=== PATIENT | female | born 1945 ===

== ENCOUNTER 2025-03-16 14:11 | Outpatient (AMB) | payer MEDICARE, OTHER, SELFPAY ==
--- NOTE | 2025-03-16 14:13 | A.OFFVIS_ITS ---
Intake Visit Reasons: tremor Allergies Sulfa (Sulfonamide Antibiotics) Allergy (Unknown, Verified 12/24/24 11:58) Unknown HPI Comments Details: The patient is a 79 year old female presenting with tremor and loss of balance. She reports issues with balance, which is her primary concern due to having bad bones and a fear of falling. She denies having any falls but states she furniture walks at home to maintain stability. The patient also reports a tremor, which she has been told is an old lady tremor. She also notes having poor memory. She reports intermittent urinary incontinence, describing it as leaking that can be absent for months at a time without a clear trigger. Past medical history is significant for atrial flutter, for which she takes Eliquis. She has a history of anxiety and depression. She denies a history of high blood pressure but notes a single elevated reading that resolved spontaneously 2-3 months ago. She has hearing impairment and typically uses hearing aids. The patient denies use of alcohol, tobacco, or illicit drugs. Her primary care physician has not performed any scans for her current symptoms. [facility] Medical History (Updated 03/16/25 @ 14:38 by Temi Mendez MD) Osteoporosis Mixed hyperlipidemia Depression Palpitation Atrial flutter Dizziness ZAKI (obstructive sleep apnea) Review of Systems Narrative Constitutional:?No fever, chills, fatigue, weight loss, or night sweats. HEENT:? Hearing loss.. Cardiovascular:?No chest pain, palpitations, orthopnea, PND, or leg swelling. Respiratory:?No cough, shortness of breath, wheezing, or hemoptysis. Gastrointestinal:?No nausea, vomiting, abdominal pain, diarrhea, or constipation. Genitourinary:? Reports intermittent urinary urgency.. Musculoskeletal:?No joint pain, stiffness, weakness, or muscle aches. Neurological:? Difficulty walking and tremor.. Psychiatric:? Anxiety and depression.. Endocrine:?No heat/cold intolerance, polydipsia, polyuria, or hair/skin changes. Hematologic/Lymphatic:?No easy bruising, bleeding, or lymphadenopathy. Integumentary (Skin):?No rash, lesions, itching, or color changes. Allergic/Immunologic:?No seasonal allergies, hives, or recurrent infections. Physical Exam Neuro Other: Mental Status: Alert and oriented to person, place, and time. Normal attention. Normal spontaneous speech, fluency, and comprehension. Cranial Nerves: CN II: Visual kaur full to confrontation, visual acuity intact. CN III, IV, : Pupils equal, round, reactive to light and accommodation. Extraocular movements are normal. CN V: Facial sensation is normal. CN VII: Facial movements symmetrical. CN VIII: Hearing intact to bedside conversation is diminished CN IX, X: Palate elevates symmetrically. CN XI: Shoulder shrug and head turn symmetrical. CN XII: Tongue midline without atrophy or fasciculations. Motor: No obvious focal arm or leg weakness. Deep tendon reflexes are 3+ with flexor plantars. Coordination: Yesrex-mn-ecga is okay. Gait and Station: Slow and cautious. Extrapyramidal: Full facial expressions and blinking. No rigidity. Movements are appropriate with no tremor or abnormality. Speech: Normal; no dysarthria or tremor. Assessment & Plan Assessment & Plan (1) Gait disorder: Code(s): R26.9 - Unspecified abnormalities of gait and mobility Category: Medical (2) Tremor: Code(s): R25.1 - Tremor, unspecified Category: Medical (3) Dementia: Code(s): F03.90 - Unspecified dementia, unspecified severity, without behavioral disturbance, psychotic disturbance, mood disturbance, and anxiety Category: Medical Qualifiers: Dementia type: unspecified type Dementia severity: mild Dementia behavioral or psychological symptom: with mood disturbance Qualified Code(s): F03.A3 - Unspecified dementia, mild, with mood disturbance Plan Impression: a: Gait disorder, 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 I explained that given her history of atrial flutter, there is a possibility of small strokes contributing to her symptoms. I have ordered a brain MRI to investigate this possibility. I instructed her to continue taking her Eliquis blood thinner. We will review the results of the MRI once it is completed. Orders: Orders MR head/brain wo con Today F03.90 - Unspecified dementia, unspecified severity, without behavioral disturbance, psychotic disturbance, mood disturbance, and anxiety, R25.1 - Tremor, unspecified, R26.9 - Unspecified abnormalities of gait and mobility Coding Level of Care Code New Pt Level 4 (10906) Diagnoses Gait disorder R26.9 Tremor R25.1 Mild dementia with mood disturbance, unspecified dementia type F03.A3 Dementia type: unspecified type Dementia severity: mild Dementia behavioral or psychological symptom: with mood disturbance
--- OUTSIDE RECORDS SUMMARY | 2025-03-16 17:40 | XMS_ITS ---
Author Name [facility] Organization Unknown Care Team Organization Name Specialty Phone Email Start Date End Da te [facility] 11/12/2024 [facility] 03/07/2023 11/12/19 24
--- OUTSIDE RECORDS SUMMARY | 2025-03-16 17:40 | XMS_ITS | Clinical Summary ---
Author Organization [address] [place] [address] Address [address] [place] [address] Phone Care Team Providers Care Doorkeeper Name Role Phone Estrella Addison MD Primary Care Provider [phone] Allergies Active Allergy Reactions Criticality Noted Date Comments Sulfa (Sulfonamide Antibiotics) 07/2022 Medications denosumab (Prolia) 60 mg/mL syringe syringe Inject into the skin. 08/29/19 23 Active escitalopram (LEXAPRO) 20 mg tablet Take 1 Tablet by mouth daily. Active calcium carbonate (CALCIUM 600 ORAL) Take by mouth. Active UNABLE TO FIND Inhale by mouth. CPAP HISTORICAL (HISTORICAL CPAP). Inhale by mouth. Active atorvastatin (LIPITOR) 40 mg tablet Take 1 tablet (40 mg total) by mouth 1 (one) time each day. 90 each 2 07/01/19 25 Active sertraline (ZOLOFT) 50 mg tablet Take 1.5 tablets (75 mg total) by mouth 1 (one) time each day. 06/20/19 25 Active albuterol HFA (PROAIR HFA ; PROVENTIL HFA ; VENTOLIN HFA) 90 mcg/actuation inhaler Inhale 2 puffs by mouth every 6 (six) hours if needed. 01/23/20 24 Active metoprolol tartrate (LOPRESSOR) 25 mg tablet Take 0.5 tablets (12.5 mg total) by mouth 2 (two) times a day. Active Eliquis 5 mg tablet TAKE 1 TABLET BY MOUTH TWICE A DAY 180 tablet 1 02/26/20 25 Active Eliquis 5 mg tablet TAKE 1 TABLET BY MOUTH TWICE A DAY 180 tablet 1 09/03/19 25 025 Discontinued Active Problems Problem Noted Date Diagnosed Date Dizziness 11/02/2023 Assessment & Plan (01/15/2025 12:03 PM EDT): See atrial flutter plan. Assessment & Plan (10/03/2024 12:53 PM EDT): Orders: Tilt table; Future ZAKI (obstructive sleep apnea) 12/29/2022 Overview (04/07/2024): Last Assessment & Plan: Patient underwent a sleep study that showed mild sleep apnea. As per the report from the [facility] sleep medicine service, she will benefit from sleep medicine consultation in the sleep medicine center. I have placed a referral. Atrial flutter 12/21/2022 Assessment & Plan (01/15/2025 12:03 PM EDT): Patient has had history of paroxysmal atrial fibrillation/flutter. She has a [id number] score of 3. She continues on Eliquis 5 mg twice daily. She denies abnormal bleeding. She is at an elevated fall risk with her ongoing dizziness. I checked orthostatic blood pressures today and there was a slight drop in her blood pressure upon standing. She is currently on metoprolol tartrate 12.5 mg twice daily our plan is to trial her off of the metoprolol to see if it helps alleviate or improve her dizziness symptoms. She was advised to utilize the metoprolol as needed if she were to experience palpitations. She was advised to ensure good hydration. If coming off of metoprolol makes no difference in her symptoms, then could consider continuing on metoprolol to tartrate 12.5 mg twice daily. Orders: ECG 12 lead Assessment & Plan (10/03/2024 12:53 PM EDT): Shortness of breath on exertion 12/21/2022 Palpitation 12/19/2022 Dyspnea on exertion 09/28/2022 Overview (04/07/2024): Last Assessment & Plan: Given the normal pulmonary work-up from the pulmonary standpoint of view, I explained Mrs. Owusu that her dyspnea is unlikely to be pulmonary cause. She does not have COPD or symptoms of asthma. Her pulmonary function test is completely normal. I will complete her work-up with a chest x-ray. She should continue with cardiology and primary care to determine if her dyspnea is cardiac in origin. Otherwise I will see her back in 6 months. Depression 08/28/2022 Closed nondisplaced fracture of third cervical v ertebra 08/28/2022 Closed nondisplaced fracture of second cervical vertebra 08/28/2022 Mixed hyperlipidemia 08/28/2022 Assessment & Plan (01/15/2025 12:03 PM EDT): Continue on statin. I have reviewed with the patient the importance of a heart healthy lifestyle which includes eating a low-fat low-salt diet, getting regular exercise, maintaining a healthy weight, not smoking, and following up with routine medical care. Assessment & Plan (10/03/2024 12:53 PM EDT): Osteoporosis 08/28/2022 Encounters Date Type Department Care Team Description 01/15/2025 10:40 AM EDT Office Visit [facility] Cardiology [phone] Gisela Gunn NP Atrial flutter, unspecified type (CMS/HCC V24, CMS/HCC V28) (Primary Dx); Dizziness; Mixed hyperlipidemia 01/15/2025 Telephone [facility] Cardiology [facility] [phone] Gisela Gunn NP from Last 3 Months Medical History Medical History Date Comments Hx of tonsillectomy DX:Hx of ton sillectomy Family History Medical History Relation Name Comments Breast cancer Brother Other cancer Brother Alcohol/Drug Father Diabetes Father Heart attack Father Heart attack Mother Relation Name Status Comments Brother Father Mother Social History Tobacco Use Types Packs/Day Years Used Date Smoking Tobacco: Never Smokeless Tobacco: Never Alcohol Use Standard Drinks/Week Comments Never 0 (1 standard drink = 0.6 oz pur e alcohol) Comments Unknown Sex and Gender Information Value Date Recorded Sex Assigned at Not on file Legal Sex Female 10:23 PM EST Gender Identity Not on file Sexual Orientation Not on file Last Filed Vital Signs Vital Sign Reading Time Taken Comments Blood Pressure 114/60 01/15/2025 12:[address] anding Pulse 57 01/15/2025 10:56 AM EDT Temperature 36.6 C (97.8 F) 10/03/2024 10:33 AM EDT Respiratory Rate 18 10/03/2024 10:33 AM EDT Oxygen Saturation 97% 01/15/2025 10:56 AM EDT Inhaled Oxygen Concentration - - Weight 44 kg (97 lb) 01/15/2025 10:56 AM EDT Height 152.4 cm (5') 01/15/2025 10:56 AM EDT Body Mass Index 18.94 01/15/2025 10:56 AM EDT Plan of Treatment Upcoming Encounters Date Type Department Care Team (Late st Contact Info) Description 10/06/2025 11:00 AM EDT Office Visit Internal Medicine - [phone] Estrella Addison MD [address] [place] [phone] Health Maintenance Due Date Last Done Comments Hepatitis C Screening 03/20/2023 Osteoporosis Screening (Bone Density Screening) 03/20/2023 Social Influencers of Health Screening 03/20/2023 Falls Risk Assessment 10/03/2024 10/04/2023 Hypertension/CHF/CAD Annual BMP Blood Test 10/04/2024 10/05/2023, 10/05/2023 COVID-19 Vaccine ( season) 2024 10/29/2023, 03/20/2023, 03/07/2022, Additional history exists Medicare Annual Wellness Visit 10/03/2025 10/03/2024 DTaP,Tdap,and Td Vaccines (2 - Td or Tdap) 03/30/2027 03/30/2017 Cholesterol Screening (Lipid Panel) 10/04/2028 10/05/2023, 10/05/2023 Pneumococcal Vaccine: 50+ Years Completed 08/25/2022, 09/18/2017, 07/22/2013 RSV Immunization Adult Patients Completed 03/20/2023 Zoster Vaccines Completed 04/13/2023, 0604/2022, 07/18/2011 Depression Screening Completed 10/03/2024, 10/04/19 Influenza Vaccine Completed 02/05/2025, , 12/18/2022, Additional history exists HIB Vaccines Aged Out No longer eligi ble based on patient's age to complete this topic HPV Vaccines Aged Out No longer eligi ble based on patient's age to complete this topic Hepatitis A Vaccines Aged Out No long er eligible based on patient's age to complete this topic Hepatitis B Vaccines Aged Out No long er eligible based on patient's age to complete this topic IPV Vaccines Aged Out No longer eligi ble based on patient's age to complete this topic MMR Vaccines Aged Out No longer eligi ble based on patient's age to complete this topic Meningococcal ACWY Vaccine Aged Out N o longer eligible based on patient's age to complete this topic Meningococcal B Vaccine Aged Out No l onger eligible based on patient's age to complete this topic RSV Immunization Patients Under 20 months Aged Out No longer eligible based on patient's age to complete this topic Varicella Vaccines Aged Out No longer eligible based on patient's age to complete this topic Procedures Procedure Name Priority Date/Time Associated Diagnosis Comments ECG 12-LEAD Routine 01/15/2025 12:02 PM EDT Atrial flutter, unspecified type (CMS/HCC V24, CMS/HCC V28) ANNUAL BMP BLOOD TEST Routine 10/05/2023 LIPID PANEL Routine 10/05/2023 DEPRESSION SCREENING Routine 10/04/2023 FALLS RISK ASSESSMENT Routine 10/04/2023 from Last 3 Months or Most Recently Relevant to Health Maintenance Results * ECG 12 lead (01/15/2025 12:02 PM EDT) Ventricular Rate ECG 57 BPM GEMUSE Atrial Rate 57 BPM GEMUSE P-R Interval 202 ms GEMUSE QRS Duration 74 ms GEMUSE Q-T Interval 436 ms GEMUSE QTc 424 ms GEMUSE P Wave Valentine 39 degrees GEMUSE R Valentine -5 degrees GEMUSE T Valentine 55 degrees GEMUSE ECG Interpretation Sinus bradycardia Otherwise normal ECG No previous ECGs available Confirmed by CHIRAG EL ([id number]) on 01/15/2025 4:09:21 PM GEMUSE 01/15/2025 11:0 1 AM EDT 01/15/2025 4:09 PM EDT Result [facility] Gisela Gunn ACADEMIC AFFAIRS DIRECTOR ECG ORDERABLES Edited Result - Final GEMUSE * Annual BMP Blood Test (10/05/2023) Pathologist [facility] Annual BMP Blood Test Abstracted Result [facility] Historical Provider HEALTH MAINTENANCE Final Result * Lipid panel (10/05/2023) [facility] LDL/HDL Ratio 2 0 - 4 Triglycerides 65 0 - 150 mg/dL Cholesterol 147 0 - 200 mg/dL HDL 80 >=40 mg/dL LDL Cholesterol 54 0 - 100 mg/dL Blood Venous blood specimen / Unknown Result [facility] Historical Provider LAB BLOOD ORDERABLES Jaelyn l Result * Falls Risk Assessment (10/04/2023) [facility] Falls Risk Assessment Abstracted Result [facility] Provider HEALTH MAINTENANCE Final Result * Depression Screening (10/04/2023) [facility] Depression Screening Abstracted Result [facility] Historical Provider HEALTH MAINTENANCE Final Result from Last 3 Months or Most Recently Relevant to Health Maintenance Insurance MEDICARE [facility] Care Teams Doorkeeper Relationship Specialty Start Date End Date Estrella Addison MD [address] [facility] [address] [phone] PCP - General 04/27/22
== END 2025-03-16 14:49 | disposition home or self-care (01) ==
PROVIDERS: Visit Provider Psychiatry & Neurology Neurology
DX: R26.9 Unspecified abnormalities of gait and mobility (principal); R25.1 Tremor, unspecified; F03.A3 Unspecified dementia, mild, with mood disturbance
CPT/HCPCS: 99204

== ENCOUNTER → 2025-03-16 14:11 | Outpatient (BNVA) | payer MEDICARE, OTHER, SELFPAY | PROVIDERS: Visit Provider Psychiatry & Neurology Neurology | DX: R26.9 Unspecified abnormalities of gait and mobility (principal); R25.1 Tremor, unspecified; F03.90 Unspecified dementia, unspecified severity, without behavioral disturbance, psychotic disturbance, mood disturbance, and anxiety | CPT/HCPCS: 99202 ==